=== PATIENT | male | born 1955 | race Caucasian/White ===

== ENCOUNTER 2019-08-18 16:39 | Emergency (ER) | payer BC, OTHER ==
--- NOTE | 2019-08-18 20:49 | EDM.PDOC ---
ED HPI GENERAL MEDICAL PROBLEM - General Chief Complaint: Genitourinary Problem Stated Complaint: unable to void s/p catheter removal Time Seen by Provider: 08/18/19 16:49 Source of Information: Reports: Patient History Limitations: Reports: No Limitations - History of Present Illness INITIAL COMMENTS - FREE TEXT/NARRATIVE: Patient is a 64-year-old gentleman who came in stating that he was unable to be he took his [place] out as per instruction from the urologist been about 8 hours since he pedal his urine was examined with the ultrasound revealed to help about 400 mL so we let him wait for a while to see if he passes urine afte12 hours patient had not urinated so we decided to put a new [place] and at this time a coud was placed and he was very about 500 mL of salmon-colored urine at this time we'll leave the Bahena end until is clear that he can remove it Onset: Today Duration: Hour(s):, Getting Worse Location: Reports: Abdomen, Pelvis Severity: Moderate Improves with: Reports: Other (Bahena catheter) Worsens with: Reports: None Abdominal pain Pain Score (Numeric/FACES): 3 - Related Data Allergies Allergy/AdvReac Type Severity Reaction Status Date / Time No Known Allergies Allergy Verified 08/18/19 17:00 Home Meds: Home Meds Tamsulosin [Tamsulosin 24 Hr] 0.4 mg PO DAILY 10/20/13 [History] Finasteride 5 mg PO DAILY 08/18/19 [History] Hydrocodone/Acetaminophen [Hydrocodon-Acetaminophen 5-325] 2 tab PO Q6HR PRN 09/26 [History] cephALEXin [Cephalexin] 500 mg PO TID 08/18/19 [History] Past Medical History Genitourinary History: Reports: BPH - Past Surgical History Other Male Surgeries/Procedures: prostate surgery 08/16/19 ED ROS GENERAL - Review of Systems Review Of Systems: See Below Constitutional: Reports: No Symptoms HEENT: Reports: No Symptoms Respiratory: Reports: No Symptoms Cardiovascular: Reports: No Symptoms Endocrine: Reports: No Symptoms : Reports: Hematuria, Pain, Urinary Retention Musculoskeletal: Reports: No Symptoms Skin: Reports: No Symptoms Neurological: Reports: No Symptoms Psychiatric: Reports: No Symptoms Hematologic/Lymphatic: Reports: No Symptoms Immunologic: Reports: No Symptoms ED EXAM, RENAL/ - Physical Exam Exam: See Below Exam Limited By: No Limitations General Appearance: Alert, WD/WN, No Apparent Distress Ears: Normal External Exam, Normal Canal, Hearing Grossly Normal, Normal TMs Nose: Normal Inspection, Normal Mucosa, No Blood Throat/Mouth: Normal Inspection, Normal Lips, Normal Teeth, Normal Gums, Normal Oropharynx, Normal Voice, No Airway Compromise Head: Atraumatic, Normocephalic Neck: Normal Inspection, Supple, Non-Tender, Full Range of Motion Respiratory/Chest: No Respiratory Distress, Lungs Clear, Normal Breath Sounds, No Accessory Muscle Use, Chest Non-Tender Cardiovascular: Normal Peripheral Pulses, Regular Rate, Rhythm, No Edema, No Gallop, No JVD, No Murmur, No Rub GI/Abdominal: Normal Bowel Sounds, Soft, Non-Tender, No Organomegaly, No Distention, No Abnormal Bruit, No Mass (Male) Exam: Suprapubic Fullness, Other (Urinary retention) Rectal (Males) Exam: Deferred Back Exam: Decreased Range of Motion Extremities: Normal Inspection, Normal Range of Motion, Non-Tender, Normal Capillary Refill, No Pedal Edema Neurological: Alert, Oriented, CN II-XII Intact, Normal Cognition, Normal Gait, Normal Reflexes, No Motor/Sensory Deficits Psychiatric: Normal Affect, Normal Mood Skin Exam: Warm, Dry, Intact, Normal Color, No Rash Lymphatic: No Adenopathy Course - Vital Signs Last Recorded V/S: Last Vital Signs Temp 98.1 F 08/18/19 17:00 Pulse 73 08/18/19 17:00 Resp 18 08/18/19 17:00 BP 141/71 H 08/18/19 17:00 Pulse Ox 94 L 08/18/19 17:00 Departure - Departure Time of Disposition: 20:50 Disposition: Home, Self-Care 01 Clinical Impression: Retention of urine - Discharge Information *PRESCRIPTION DRUG MONITORING PROGRAM REVIEWED*: No *COPY OF PRESCRIPTION DRUG MONITORING REPORT IN PATIENT AMY: No Instructions: Indwelling Urinary Catheter Care, Adult Referrals: Jay Chris PA-C [Primary Care Provider] - Care Plan Goals: Patient is to start Flomax and Proscar tomorrow then removed the Bahena is clear in 2-3 days.
== END 2019-08-18 20:55 | disposition home or self-care (01) ==
LOC: LL.ED 16:39
DX: R33.9 Retention of urine, unspecified (principal)
CPT/HCPCS: 51702; 51798; 99283